=== PATIENT | female | born 1945 | race Caucasian/White ===

== ENCOUNTER 2018-05-29 08:08 | Day surgery (SDC) | payer MEDICARE ==
[~2018-05-29] VITALS: Ht 167.6 cm; Wt 78.7 kg
[2018-05-29] MEDS ORDERED: LACTATED RINGERS 1,000 ML IV SCH (08:59)
[2018-05-29] MEDS ORDERED: ASPI-496 PO (09:01)
[2018-05-29] MEDS ORDERED: UBID100C41 PO (09:01)
[2018-05-29] MEDS ORDERED: EPIN0.3P3 SQ (09:01)
[2018-05-29] MEDS ORDERED: LEVO75TA5 PO (09:03)
[2018-05-29] MEDS ORDERED: OMEP20TA62 PO (09:03)
[2018-05-29] MEDS ORDERED: VITA1CAP PO (09:03)
[2018-05-29] MEDS ORDERED: CHOL200074 PO (09:03)
[2018-05-29] MEDS ORDERED: ASCO500T8 PO (09:03)
[2018-05-29 09:27] VITALS: BP 141/93
[2018-05-29] MEDS ORDERED: PROPOFOL 10 MG/ML, 20ML ONE (10:36)
[2018-05-29] MEDS ORDERED: ONDANSETRON 2MG/ML, 2ML ONE (10:36)
[2018-05-29] MEDS ORDERED: DEXAMETHASONE 4 MG/ML, 1ML ONE (10:36)
[2018-05-29] MEDS ORDERED: FENTANYL PF 100 MCG/2ML ONE (11:04)
[2018-05-29] MEDS ORDERED: LABETALOL 5MG/ML, 20ML IV PRN (11:30)
[2018-05-29] MEDS ORDERED: FENTANYL PF 100 MCG/2ML IV PRN (11:30)
[2018-05-29] MEDS ORDERED: LORazepam 2 MG/ML, 1ML IVPush PRN (11:30)
[2018-05-29] MEDS ORDERED: PROMETHAZINE 25 MG/ML, 1ML IV PRN (11:30)
[2018-05-29] MEDS ORDERED: KETOROLAC 30 MG/1 ML IV PRN (11:30)
[2018-05-29] MEDS ORDERED: OXYcodone 5 MG/5 ML ORAL.SOL UDC PO PRN (11:30)
[2018-05-29] MEDS ORDERED: MEPERIDINE/PF 25MG/0.5ML IVPush PRN (11:30)
[2018-05-29] MEDS ORDERED: ALBUTEROL SULFATE 2.5 MG/3 ML NPPB PRN (11:30)
[2018-05-29] MEDS ORDERED: hydrALAzine 20 MG/ML, 1ML IV PRN (11:30)
[2018-05-29] MEDS ORDERED: ACETAMINOPHEN 325 MG TABLET PO PRN (11:30)
[2018-05-29] MEDS ORDERED: HYDROmorphone 1 MG/ML, 1ML IV PRN (11:30)
== END 2018-05-29 13:15 | disposition home or self-care (01) ==
LOC: OR 08:08 → OUT 13:15
PROVIDERS: ATTEND Internal Medicine Gastroenterology
DX: C15.9 Malignant neoplasm of esophagus, unspecified (principal); K22.2 Esophageal obstruction; K44.9 Diaphragmatic hernia without obstruction or gangrene; K21.9 Gastro-esophageal reflux disease without esophagitis; E03.9 Hypothyroidism, unspecified; R59.0 Localized enlarged lymph nodes; E11.9 Type 2 diabetes mellitus without complications; Z79.82 Long term (current) use of aspirin; Z88.0 Allergy status to penicillin; Z88.8 Allergy status to other drugs, medicaments and biological substances; Z91.030 Bee allergy status; Z91.040 Latex allergy status; Z90.710 Acquired absence of both cervix and uterus; Z98.890 Other specified postprocedural states
CPT/HCPCS: 43238; 43249; 88305; 93005; C1725; J1100; J2405; J2704; J3010; J7120

== ENCOUNTER 2018-09-11 06:10 | Day surgery (SDC) | payer MEDICARE ==
[~2018-09-11] VITALS: Ht 165.1 cm; Wt 69.1 kg
[~2018-09-11 06:10] MED LIST: ASCO500T8 PO; ASPI-496 PO; CHOL200074 PO; EPIN0.3P3 SQ; LEVO75TA5 PO; OMEP20TA62 PO; UBID100C41 PO; VITA1CAP PO
[2018-09-11] MEDS ORDERED: LACTATED RINGERS 1,000 ML IV SCH (06:49)
[2018-09-11 06:50] VITALS: BP 111/77
[2018-09-11] MEDS ORDERED: RANI150T60 PO (06:59)
[2018-09-11] MEDS ORDERED: FENTANYL PF 100 MCG/2ML ONE (07:25)
[2018-09-11] MEDS ORDERED: MIDAZOLAM 1 MG/ML, 2ML ONE (07:25)
[2018-09-11] MEDS ORDERED: PROPOFOL 10 MG/ML, 20ML ONE ×2 (07:34)
[2018-09-11] MEDS ORDERED: PROPOFOL 50 ML ONE (07:34)
[2018-09-11] MEDS ORDERED: ONDANSETRON 2MG/ML, 2ML ONE ×2 (07:35→09:17)
[2018-09-11] MEDS ORDERED: HYDROmorphone 2 MG/ML, 1ML IVPush PRN (08:00)
[2018-09-11] MEDS ORDERED: ONDANSETRON 2MG/ML, 2ML IV PRN (08:00)
[2018-09-11] MEDS ORDERED: HALOPERIDOL 5 MG/ML IV PRN (08:00)
[2018-09-11] MEDS ORDERED: hydrALAzine 20 MG/ML, 1ML IV PRN (08:00)
[2018-09-11] MEDS ORDERED: LABETALOL 5MG/ML, 20ML IV PRN (08:00)
[2018-09-11] MEDS ORDERED: OXYcodone 5 MG/5 ML ORAL.SOL UDC PO PRN (08:00)
[2018-09-11] MEDS ORDERED: ACETAMINOPHEN 325 MG TABLET PO PRN (08:00)
[2018-09-11] MEDS ORDERED: FENTANYL PF 100 MCG/2ML IV PRN (08:00)
[2018-09-11] MEDS ORDERED: MEPERIDINE/PF 25MG/0.5ML IVPush PRN (08:00)
[2018-09-11] MEDS ORDERED: ROCURONIUM 10MG/ML,5ML ONE (09:16)
[2018-09-11] MEDS ORDERED: PHENYLEPHRINE 10 MG/ML ONE (09:16)
== END 2018-09-11 09:50 | disposition home or self-care (01) ==
LOC: OUT 06:10
PROVIDERS: ATTEND Internal Medicine Gastroenterology
DX: K22.2 Esophageal obstruction (principal); K44.9 Diaphragmatic hernia without obstruction or gangrene; R59.1 Generalized enlarged lymph nodes; K21.9 Gastro-esophageal reflux disease without esophagitis; Z85.01 Personal history of malignant neoplasm of esophagus; Z88.0 Allergy status to penicillin
CPT/HCPCS: 43237; 43249; 93005; C1725; J2370; J2405; J2704; J7120; J2250; J3010